=== PATIENT | female | born 1965 | race Caucasian/White ===

== ENCOUNTER 2016-05-23 08:37 | Emergency (ER) | payer SELFPAY ==
[~2016-05-23] VITALS: Ht 165.1 cm; Wt 98.4 kg
[~2016-05-23 08:37] MED LIST: AMLO10TA2 PO; CLON0.1T PO; LISI40TA PO; LOVA20TA PO
[2016-05-23 08:47] VITALS: BP 151/97; PULSE 76; RESP 16; TEMP 98.3; O2SAT 97
--- NOTE | 2016-05-23 09:09 | PD ---
HPI Chief Complaint: Medication Refill Request Time Seen by Provider: 08:52 Travel History International Travel<30 days: No Contact w/Intl Traveler<30days: No Traveled to known affect area: No History of Present Illness HPI Patient is a 50-year-old asymptomatic female presents to emergency department for refill of her blood pressure medicines. Patient states she has been unable to afford a primary care physician would cost her 150 box to go see one that she has Medicaid sure of cause. Patient states that she is still smoking a pack and a half and a spending $10 on cigarettes a day. She has multiple presentations to this and are main emergency department for blood pressure medicine refills. Her last visit here was February 2016 when she received a 3 month refill at that time. Patient has no complaints at this time. Denies any chest pain shortness of breath abdominal pain dysuria blood in the urine abdominal pain nausea vomiting or diarrhea. PFSH Past Medical History Hx Anticoagulant Therapy: No Cardiovascular Problems: Yes (htn on meds) High Cholesterol: Yes Diabetes: No Diminished Hearing: No Hypertension: Yes Immunizations Current: Yes ?: Not LMP: 3 weeks : 3 Para: 3 Miscarriage: 0 Tubal Ligation: Yes Past Surgical History Section: Yes (3) Cholecystectomy: Yes Hysterectomy: Yes (PARTIAL ) Social History Alcohol Use: No Tobacco Use: Yes (1 PPD) Substance Use: No Allergies-Medications (Allergen,Severity, Reaction): Coded Allergies: No Known Allergies (Verified , 05/23/16) Reported Meds & Prescriptions Reported Meds & Active Scripts Active Amlodipine (Amlodipine Besylate) 10 Mg Tab 10 Mg PO DAILY Lisinopril 40 Mg Tab 40 Mg PO HS Clonidine (Clonidine HCl) 0.1 Mg Tab 0.1 Mg PO DAILY Lovastatin 20 Mg Tab 20 Mg PO DAILY Review of Systems Except as stated in HPI: all other systems reviewed are Neg Physical Exam Narrative GENERAL: Well-developed well-nourished no apparent distress, smells of cigarette smoke. SKIN: Warm and dry. HEAD: Atraumatic. Normocephalic. EYES: Pupils equal and round. No scleral icterus. No injection or drainage. ENT: No nasal bleeding or discharge. Mucous membranes pink and moist. NECK: Trachea midline. No JVD. CARDIOVASCULAR: Regular rate and rhythm. No murmur appreciated. RESPIRATORY: No accessory muscle use. Clear to auscultation. Breath sounds equal bilaterally. GASTROINTESTINAL: Abdomen soft, non-tender, nondistended. Hepatic and splenic margins not palpable. MUSCULOSKELETAL: No obvious deformities. No clubbing. No cyanosis. No edema. NEUROLOGICAL: Awake and alert. No obvious cranial nerve deficits. Motor grossly within normal limits. Normal speech. PSYCHIATRIC: Appropriate mood and affect; insight and judgment normal. Data Data Last Documented VS Vital Signs Date Time Temp Pulse Resp B/P Pulse Ox O2 Delivery O2 Flow Rate FiO2 05/23/16 08:47 98.3 76 16 151/97 97 MDM Medical Decision Making Medical Screen Exam Complete: Yes Emergency Medical Condition: No Differential Diagnosis I symptomatically hypertension, asymptomatic hyperlipid, poor social circumstance. Narrative Course Patient has no signs symptoms of acute medical emergency. She is asymptomatic and has no signs symptoms reported this time. Patient states she comes here because she cannot afford a primary care physician at $150 per visit. She has had multiple presentations emergency department for similar. She received a three-month refill in March and has just run out of this refill. At this time she does not meet criteria for an acute medical emergency. I have discussed with her that given that she is spending almost $300 a month of cigarette she needs to prioritize her's expenditures and see her primary care physician. I also reiterated that I am not a primary care physician I feel uncomfortable taking care of her chronic medical problems and for her safety I would prefer she go trauma primary medical physician for evaluation of lipid levels and diabetes as well as her blood pressure. She's been marked EM no she was seen by caseworkers and ultimately ambulated from the emergency department in no apparent distress. Diagnosis Primary Impression: Hyperlipidemia Qualified Code: E78.5 - Hyperlipidemia, unspecified hyperlipidemia type Additional Impressions: Hypertension Qualified Code: I15.9 - Secondary hypertension Encounter for medical screening examination Disposition: 01 DISCHARGE HOME Condition: Stable Vineet Eli MD May 23, 2016 09:09
== END 2016-05-23 09:19 | disposition left against medical advice (07) ==
LOC: PHEFT 08:37
DX: E78.5 Hyperlipidemia, unspecified (principal); I10 Essential (primary) hypertension; F17.210 Nicotine dependence, cigarettes, uncomplicated; Z76.0 Encounter for issue of repeat prescription
CPT/HCPCS: 99281